=== PATIENT | female | born 2005 | race Caucasian/White ===

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

== ENCOUNTER 2023-02-01 00:11 | Emergency (ER) | payer OTHER ==
[~2023-02-01] VITALS: Ht 157.5 cm; Wt 81.4 kg
[~2023-02-01 00:11] MED LIST: ACET-683 PO; BENZ200C70 PO; LIDO15SO PO; PSEU120T19 PO
[2023-02-01] MEDS ORDERED: CIPRODEX OTIC SUSP 7.5ML AD STA (01:26)
[2023-02-01] MEDS ORDERED: PSEU120T19 PO (01:28)
[2023-02-01] MEDS ORDERED: AMOX875T2 PO (01:28)
[2023-02-01] MEDS ORDERED: CIPR7.5D5 AD (01:28)
[2023-02-01] MEDS ORDERED: KETOROLAC 60MG 2ML VIAL IM ONE (01:30)
[2023-02-01] MEDS ORDERED: AUGMENTIN 875 MG TAB PO ONE (01:30)
[2023-02-01] MEDS ORDERED: NORCO, ANEXSIA 5/325MG TABLET (HYDROcodone/ACETAMINOPHEN) PO ONE (01:30)
[2023-02-01 01:35] VITALS: BP 137/85
== END 2023-02-01 01:44 | disposition home or self-care (01) ==
LOC: M ED 00:11
DX: H66.91 Otitis media, unspecified, right ear (principal); H60.91 Unspecified otitis externa, right ear; Z79.2 Long term (current) use of antibiotics; Z79.899 Other long term (current) drug therapy
CPT/HCPCS: 96372; 99283; J1885

== ENCOUNTER 2023-06-15 18:46 | Emergency (ER) | payer OTHER ==
[~2023-06-15] VITALS: Ht 157.5 cm; Wt 82.9 kg
[~2023-06-15 18:46] MED LIST changes: +AMOX875T2 PO; +CIPR7.5D5 AD
[2023-06-15 21:05] LABS: BASO % 0.3 % (0.0-1.0); EOS # 0.1 10^3/uL (0.0-0.5); EOS % 0.9 % (0.0-3.0); HEMATOCRIT 42.5 % (36.0-47.0); HEMOGLOBIN 14.2 g/dl (12.0-15.5); LYMPH % 26.2 % (24.0-44.0); MEAN CORPUSCULAR HEMOGLOBIN 29.2 pg (27.0-33.0); MEAN CORPUSCULAR HGB CONC 33.4 g/dl (32.0-36.5); MEAN CORPUSCULAR VOLUME 87.4 fl (80.0-96.0); MONO # 0.7 10^3/uL (0.0-0.8); MONO % 5.7 % (2.0-8.0); NEUTROPHILS # 7.6 10^3/uL (1.5-8.5); NEUTROPHILS % 66.6 % (36.0-66.0); PLATELET COUNT, AUTOMATED 308 10^3/uL (150-450); RED BLOOD COUNT 4.86 10^6/uL (4.00-5.40); WHITE BLOOD COUNT 11.4 10^3/uL (4.0-10.0)
[2023-06-15 21:27] LABS: ERYTHROCYTE SEDIMENTATION RATE 11 mm/hr (0-20)
[2023-06-15 21:36] LABS: ALBUMIN 4.1 G/DL (3.2-5.2); BILIRUBIN,DIRECT 0.1 MG/DL (<0.4); BILIRUBIN,TOTAL 0.4 MG/DL (0.3-1.2); TOTAL PROTEIN 7.4 G/DL (5.7-8.2)
[2023-06-15 21:39] LABS: RSV AMPLIFICATION NEGATIVE (NEGATIVE)
[2023-06-15] MEDS ORDERED: NS 1,000 ML IV ONE (21:45)
[2023-06-15] MEDS ORDERED: METOCLOPRAMIDE INJ 10MG/2ML VIAL IV ONE (21:45)
[2023-06-15] MEDS ORDERED: ACETAMINOPHEN *IV* 1,000 MG in IV 1 EA IV ONE (21:45)
[2023-06-15] MEDS ORDERED: dexAMETHasone 20MG/5ML VIAL IV ONE (21:45)
[2023-06-15] MEDS ORDERED: ISOVUE-370 76% 100ML VIAL As Ordered ONE (21:49)
[2023-06-15 22:00] VITALS: BP 136/72; TEMP 98; O2SAT 99
[2023-06-18] MEDS ORDERED: NITR1CAP11 PO (14:37)
== END 2023-06-15 23:02 | disposition home or self-care (01) ==
LOC: M ED 18:46
DX: R10.9 Unspecified abdominal pain (principal); R51.9 Headache, unspecified
CPT/HCPCS: 36415; 70450; 74177; 80047; 80076; 81001; 83690; 84702; 85025; 85652; 86140; 87088; 87186; 87631; 93005; 96365; 96375; 99284; J0131; J1100; J2765; Q9967